=== PATIENT | female | born 1955 | race Caucasian/White ===

== ENCOUNTER 2019-11-05 10:57 | Outpatient (CLI) | payer BC, SELFPAY ==
--- NOTE | ~2019-11-05 | MM_ITS ---
EXAMINATION: MM screening angelina BI w davina HISTORY: Screening mammogram TECHNIQUE: Craniocaudal and mediolateral oblique 3-D tomosynthesis images were obtained and synthetic 2-D images were generated. CAD analysis was submitted and interpreted. COMPARISON: 05/23/2018, 05/15/2017, 05/11/2016 bilateral digital screening mammogram examinations BREAST PARENCHYMAL COMPOSITION: There are scattered areas of fibroglandular density. FINDINGS: There is no evidence of suspicious mass, calcification, or architectural distortion to sugg est malignancy in either breast. There has been no suspicious interval change. IMPRESSION: 1. No mammographic evidence of malignancy. 2. Recommend routine screening mammography in one year. BI-RADS Category 1: Negative Reviewed, dictated and finalized at location A.
== END 2019-11-05 10:58 | disposition home or self-care (01) ==
LOC: CHSIMG 11:01
PROVIDERS: Visit Provider Obstetrics & Gynecology
DX: Z12.31 Encounter for screening mammogram for malignant neoplasm of breast (principal)
CPT/HCPCS: 77063; 77067

== ENCOUNTER 2020-11-10 08:26 | Outpatient (CLI) | payer BC, SELFPAY ==
--- NOTE | ~2020-11-10 | MM_ITS ---
EXAMINATION: MM screening angelina BI w davina HISTORY: Screening mammogram, family history of breast cancer in her mother. TECHNIQUE: Craniocaudal and mediolateral oblique 3-D tomosynthesis images were obtained and synthetic 2-D images were generated. CAD analysis was submitted and interpreted. COMPARISON: 11/05/2019, 05/23/2018, 05/15/2017 BREAST PARENCHYMAL COMPOSITION: There are scattered areas of fibroglandular density. FINDINGS: There is no evidence of suspicious mass, calcification, or architectural distortion to sugg est malignancy in either breast. There has been no suspicious interval change. IMPRESSION: 1. No mammographic evidence of malignancy. 2. Recommend routine screening mammography in one year. BI-RADS Category 1: Negative Reviewed, dictated and finalized at location A.
== END 2020-11-10 08:27 | disposition home or self-care (01) ==
LOC: CHSIMG 08:27
PROVIDERS: PCP Obstetrics & Gynecology; Visit Provider Obstetrics & Gynecology
DX: Z12.31 Encounter for screening mammogram for malignant neoplasm of breast (principal)
CPT/HCPCS: 77063; 77067

== ENCOUNTER 2021-04-22 11:16 | Outpatient (CLI) | payer BC, SELFPAY ==
--- NOTE | ~2021-04-22 | XR_ITS ---
XR knee LT 2V DATE: 04/22/2021 11:32 INDICATION: Medial left knee pain TECHNIQUE: AP and lateral views COMPARISON: None FINDINGS: There is mild osteoarthritis at the patellofemoral and medial compartments. No fracture or dislocation or joint effusion. No periosteal reaction or bone destruction, radiopaque intra-articular loose body or chondrocalcinosis. IMPRESSION: Mild osteoarthritis Reviewed, dictated and finalized at location A. NCIAL PLANNING ASSISTANT IMPRESSION: Mild osteoarthritis
== END 2021-04-22 11:17 | disposition home or self-care (01) ==
LOC: CHSIMG 11:18
PROVIDERS: PCP Family Medicine; Visit Provider Nurse Practitioner Family
DX: M25.562 Pain in left knee (principal)
CPT/HCPCS: 73560

== ENCOUNTER 2021-06-02 08:26 | Outpatient (CLI) | payer BC, SELFPAY ==
[2021-06-02 09:12] LABS: Alanine Aminotransferase 37 U/L (14-59); Albumin Level 3.8 g/dL (3.4-5.0); Alkaline Phosphatase 108 U/L (46-116); Anion Gap 4 mmol/L (8-16); Aspartate Amino Transferase 24 U/L (15-37); Bilirubin,Total 0.3 mg/dL (0.00-1.00); Blood Urea Nitrogen 17 mg/dL (7-18); Calcium 8.7 mg/dL (8.5-10.1); Carbon Dioxide 33 mmol/L (21-32); Chloride 104 mmol/L (98-108); Cholesterol 216 mg/dL (0-200); Estimated Glomerular Filt Rate > 60; Glucose 107 mg/dL (70-99); HDL Direct 55 mg/dL (40-60); LDL Cholesterol Calculated 141 mg/dL (<130); Osmolality Calculated 293 mOsm/kg (285-295); Potassium 3.7 mmol/L (3.5-5.1); Sodium 141 mmol/L (136-145); Total Protein 6.8 g/dL (6.4-8.2); Triglycerides 101 mg/dL (0-150)
== END 2021-06-02 08:27 | disposition home or self-care (01) ==
LOC: CHSLAB 08:29
PROVIDERS: PCP Nurse Practitioner Family; Visit Provider Nurse Practitioner Family
DX: Z00.00 Encounter for general adult medical examination without abnormal findings (principal)
CPT/HCPCS: 36415; 80053; 80061

== ENCOUNTER 2021-08-03 10:31 | Outpatient (CLI) | payer BC, SELFPAY ==
--- NOTE | ~2021-08-03 | MR_ITS ---
EXAMINATION: MR knee LT wo con DATE: 08/03/2021 11:01 INDICATION: 6 months of left knee pain TECHNIQUE: Magnetic resonance imaging (MRI) of the left knee was performed without intravenous contra st. Sequences included coronal PD-weighted FSE, coronal PD-weighted FS FSE, sagittal T2-weighted FSE , sagittal PD-weighted FS FSE and axial PD weighted fat saturated FSE. COMPARISON: None. FINDINGS: Medial compartment: Full-thickness radial tear near the posterior root of the medial meniscus. Additional small radial te ar along the inner free edge of the more medial posterior horn. Partial-thickness chondral ulceration with chondral surface irregularity and mild underlying cortical irregularity and edema-like marrow s ignal change at the anterior weightbearing medial femoral condyle. Mild partial-thickness cartilage l oss with some additional chondral surface regularity of the central to anterior aspect of the medial tibial plateau. Lateral compartment: Lateral meniscus is normal. Articular cartilage is normal. Patellofemoral compartment: Deep chondral ulceration along the patellar apical ridge with foci of subarticular edema-like signal changes at the cephalad aspect of the apical ridge and mild cystlike change at the inferior aspect of the apical ridge. Less severe partial thickness chondral ulceration without degenerative subchondral changes at the medial patellar facet. Deep chondral ulceration and fissuring with prominent underlyi ng subarticular edema and cystlike changes at the central to the inferomedial aspect of the lateral t rochlea. Additional deep chondral fissuring with mild subarticular edema-like signal change at the in ferior aspect of the medial trochlea. Ligaments and tendons: Anterior and posterior cruciate ligaments are normal. The medial collateral ligament and fibular mel ateral ligament complex are normal. Mild distal quadriceps tendinopathy without discrete tear. The pa tellar tendon is normal. The visualized medial and lateral hamstring tendons as well as the iliotibia l band are normal. Fluid: Small left knee joint effusion at the suprapatellar pouch. No loose osteochondral bodies identified. Small Sheffield's cyst. Osseous/other: Bone alignment is normal. No fracture or abnormal marrow replacing process. IMPRESSION: 1. Full-thickness radial tear near the posterior root of the medial meniscus. 2. 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 Reviewed, dictated and finalized at location A. IMPRESSION: 1. Full-thickness radial tear near the posterior root of the medial meniscus. 2. 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
== END 2021-08-03 10:32 | disposition home or self-care (01) ==
LOC: CHSIMG 10:32
PROVIDERS: PCP Nurse Practitioner Family; Visit Provider Nurse Practitioner Family
DX: M25.562 Pain in left knee (principal)
CPT/HCPCS: 73721

== ENCOUNTER 2021-10-01 08:06 | Outpatient (CLI) | payer BC, SELFPAY ==
--- NOTE | ~2021-10-01 | XR_ITS ---
XR chest 2V DATE: 10/01/2021 09:09 INDICATION: Preoperative chest TECHNIQUE: 2 views COMPARISON: None FINDINGS: Normal heart size. No hilar or mediastinal enlargement. Bilateral hyperinflation. No pul monary infiltrate or consolidation, pulmonary vascular congestion or pleural effusion or pneumothorax . IMPRESSION: Bilateral hyperinflation; no active cardiopulmonary disease Reviewed, dictated and finalized at location B.
[2021-10-01 08:18] LABS: Basophils Absolute Auto 0.02 K/mm3 (0.00-0.10); Basophils Percent Auto 0.4 % (0.0-1.0); Eosinophils Absolute Auto 0.15 K/mm3 (0.02-0.50); Eosinophils Percent Auto 3.2 % (1.0-6.0); Hematocrit 41.1 % (35.0-49.0); Hemoglobin 13.5 g/dL (12.0-15.0); Immature Granulocyte Absolute 0.01 K/mm3 (0.00-0.00); Immature Granulocyte Percent A 0.2 % (0.0-0.0); Lymphocytes Absolute Auto 1.75 K/mm3 (1.10-4.50); Lymphocytes Percent Auto 37.4 % (18.0-42.0); Mean Corpuscular HGB Conc 32.8 g/dL (32.0-36.0); Mean Corpuscular Volume 88.2 fL (78.0-102.0); Mean Platelet Volume 10.2 fl (9.2-11.8); Monocytes Absolute Auto 0.44 K/mm3 (0.10-0.90); Monocytes Percent Auto 9.4 % (2.0-11.0); Neutrophils Absolute Auto 2.3 K/mm3 (1.7-7.2); Neutrophils Percent Auto 49.4 % (50.0-70.0); Platelet Count Result 240 K/mm3 (150-420); Red Blood Count 4.66 M/mm3 (4.20-5.40); White Blood Count 4.7 K/mm3 (4.8-10.8)
--- NOTE | 2021-10-01 08:30 | ECG_ITS ---
Measurements Intervals [place] Rate: 65 P: 50 MS: 155 QRS: -11 QRSD: 136 T: 44 QT: 444 QTc: 464 Interpretive Statements SINUS RHYTHM RIGHT BUNDLE BRANCH BLOCK [120+ ms QRS DURATION, UPRIGHT V1, 40+ ms S IN I/aVL/V4/V5/V6] NO PREVIOUS ECG AVAILABLE FOR COMPARISON Electronically Signed On 10-01-2021 10:28:23 CDT by Sharad Marc M.D.
[2021-10-01 09:18] LABS: Alanine Aminotransferase 23 U/L (14-59); Albumin Level 4.2 g/dL (3.4-5.0); Alkaline Phosphatase 106 U/L (46-116); Anion Gap 8 mmol/L (8-16); Aspartate Amino Transferase 15 U/L (15-37); Bilirubin,Total 0.6 mg/dL (0.00-1.00); Blood Urea Nitrogen 20 mg/dL (7-18); Carbon Dioxide 29 mmol/L (21-32); Chloride 106 mmol/L (98-108); Cholesterol 203 mg/dL (0-200); Estimated Glomerular Filt Rate > 60; Glucose 118 mg/dL (70-99); HDL Direct 48 mg/dL (40-60); LDL Cholesterol Calculated 129 mg/dL (<130); Osmolality Calculated 299 mOsm/kg (285-295); Potassium 3.5 mmol/L (3.5-5.1); Sodium 143 mmol/L (136-145); Total Protein 6.9 g/dL (6.4-8.2); Triglycerides 130 mg/dL (0-150)
== END 2021-10-01 08:07 | disposition home or self-care (01) ==
LOC: CHSLAB 08:08
PROVIDERS: PCP Nurse Practitioner Family; Visit Provider Nurse Practitioner Family
DX: Z01.818 Encounter for other preprocedural examination (principal)
CPT/HCPCS: 36415; 71046; 80053; 80061; 85025; 93005

== ENCOUNTER 2021-10-08 00:58 | Day surgery (SDC) | payer BC, SELFPAY ==
[2021-10-05 13:48] VITALS: BMI 24.0
--- NOTE | 2021-10-05 14:00 | PC.NURSE ---
Report to the Outpatient Waiting Room, entrance under the green pavilion located off [address], at time _0815_ on date _[id number]_. OR Time: _1015_. - You and your visitor will be asked to self-screen and do not enter if you have any COVID symptoms. - Only one visitor and NO children visitors are allowed at this time. - The patient visitor is requested to leave or wait in car when not with patient due to restrictions. - A mask is required within the hospital. Patients may have clear liquids (water, carbonated beverages, clear teas, apple juice) until 3 hours prior to surgery with a maximum of 20 ounces. - No food from midnight until time of surgery Take the following medications with a SIP of water the morning of surgery: ____None Medications to discontinue per physician Patient already stopped supplements. Date to take last dose Please no make-up, nail occitan, hairspray, perfume, deodorant, or body powder the day of surgery. No jewelry (including any body piercings) or valuables the day of surgery, leave them at home. Please take a shower or bath the night before, or the morning of, surgery with an antibacterial soap. Wear comfortable, loose fitting clothing. - Jewelry must be removed prior to entering the operating room. Rings and piercings that are not removed may be cut off. - The hospital will not accept responsibility for valuables. - Please leave all valuables, including medications, at home the day of surgery. If you are going home after surgery, a licensed wheat combine driver must drive you home. - NO public transportation without another adult. - We recommend that an adult stay with you for 24 hours following discharge. - We also recommend that you do not drive, make important decision, drink alcoholic beverages, or take any drugs that were not prescribed by your health care provider for at least 24 hours after your discharge time. Follow any additional instructions given to you from your surgeon. If you or anyone in your household have experienced Covid symptoms in the past week, please notify your surgeon or the nurse liaison at the phone number below for possible testing. Telephone instructions given to __Patient__and asked if any additional questions and then verbalized understanding. Patient advised to call surgeon office or pre surgery nurse liaison [phone] if any additional questions.
[2021-10-08] VITALS (9 sets, daily range): BP systolic 109–168; BP diastolic 66–87; PULSE 64–79; RESP 11–18; TEMP 36.2–36.7; O2SAT 97–100
--- NOTE | 2021-10-08 07:16 | WPDHPUPDATE1 ---
History and Physical Update Update Date/Time: 10/08/21 07:16 History and Physical has been reviewed, including an updated exam of the patient. There are NO changes in the patient's condition. Risks, benefits, and alternatives have been discussed and questions answered. Patient agrees to proceed with procedure.
[2021-10-08] MEDS: LACTATED RINGERS 1,000 ML 30 ML IV CONT ×2 (09:00→11:40)
--- NOTE | 2021-10-08 09:18 | WPDANESEPPF ---
Anes - Initial Pre Proc Eval Procedure: Operation Date: 10/08/21 10:15 Proposed Procedures p Left Knee Arthroscopy, Proceed As Indicated - Marvin Noel MD Date/Time: 10/08/21 09:18 Surgeon: Marvin Noel MD Pre Op Diagnosis: left knee medial meniscus tear Patient Data Age: 66 Gender: F Height: 1.6 m Weight: 61.6 kg Allergies Allergy/AdvReac Type Severity Reaction Status Date / Time Penicillins Allergy Mild Rash Verified 10/05/21 13:46 Home Medications Medication Instructions Recorded Confirmed Type calcium carbonate 600 mg calcium 600 mg PO DAILY 09/07/21 10/05/21 History (1,500 mg) tablet (Calcium) omega-3s 350 cv-adu-cys-other 1 cap PO DAILY 09/07/21 10/05/21 History [id number] oil 600 mg capsule (Fish Oil) turmeric root extract 500 mg 1,000 mg PO DAILY 09/07/21 10/05/21 History capsule lisinopril 20 mg tablet 20 mg PO DAILY #30 tabs 09/30/21 10/05/21 Rx chlorhexidine gluconate 4 % 1 applic topical ONCE #237 mL 10/01/21 Rx topical liquid (Hibiclens) Patient hx anesthesia problems: none Family hx anesthesia problems: none Results Review: All pre-operative results and documents have been reviewed as part of the pre-operative evaluation. 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 by the patient): Female Spiritual care concerns: No Anes - Eval Final PreProcedure Day of Procedure 10/08/21 09:18 Patient weight: normal Heart: regular rate and rhythm Lungs: clear to auscultation Airway: Mallampati scale class II Neurological: alert and oriented Last oral intake: >/= 8 hours ASA classification: II Anesthetic plan: proceed Anesthesia type and monitoring: general LMA and standard monitoring Results Review: All pre-operative results and documents have been reviewed as part of the pre-operative evaluation. Informed Consent: The patient's anesthetic plan and its attendant risks and benefits were discussed with the patient/family/POA. Questions were solicited and answers provided to the satisfaction of the patient/family/POA.
[2021-10-08] MEDS: ACETAMINOPHEN 500 MG TABLET 1000 MG PO (09:30)
[2021-10-08] MEDS: CELECOXIB 200 MG CAPSULE PO (09:30)
--- NOTE | 2021-10-08 10:12 | PM.IMHP ---
H&P: HPI History of Present Illness Date/Time: 10/08/21 10:12 Chief Complaint: LEFT KNEE PAIN Narrative: Pt presents with Left knee pain that has been present for approximately 6 months. NKI. Pt states ~April she began having a burning pain throughout the entire left leg, including hip and low back/buttock. She then ran a 5k &10k which exacerbated her pain. Her pain is currently located at the medial aspect of the knee. She was ordered Diclofenac by her PCP which she took for a short time. She states the medication did reduce her pain but did not resolve it. Her pain becomes worse with activity so she has dramatically decreased her activity level which is effecting her life and well-being. She is not currently ambulating w/ AD. She tried bracing in the past but D/C'd as it was not providing adequate relief. She underwent an MRI 08/03/21 and is here to discuss results and further plan of care. Involved knee: LEFT Onset: gradual Description of injury: NKI Location of pain: medial Character: radiating, dull ache and shooting Timing of pain: intermittent Exacerbated by: squatting, stairs, running, prolonged activity and walking down stairs Relieved by: ice, rest and NSAIDs Associated symptoms: Reports swelling, instability and stiffness History of occupational/recreational activity with repetitive motion: No History of prior knee injury: No Review of Systems Review of Systems: All systems reviewed & are unremarkable except as noted in HPI and below PMFSH Surgical History Surgical History H/O tubal ligation Hx of tonsillectomy Family History Family History Other Arthritis Breast cancer Hypertension Social History Social History Smoking status: Never smoker Alcohol intake: current Drinks per week: 6 Substance use: never Living arrangements: with family 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 by the patient): Female Spiritual care concerns: No Meds Home Medications and Allergies Home Medications Medication Instructions Recorded Confirmed Type calcium carbonate 600 mg calcium 600 mg PO DAILY 09/07/21 10/08/21 History (1,500 mg) tablet (Calcium) omega-3s 350 eb-vkb-sfh-other 1 cap PO DAILY 09/07/21 10/08/21 History [id number] oil 600 mg capsule (Fish Oil) turmeric root extract 500 mg 1,000 mg PO DAILY 09/07/21 10/08/21 History capsule lisinopril 20 mg tablet 20 mg PO DAILY #30 tabs 09/30/21 10/08/21 Rx chlorhexidine gluconate 4 % 1 applic topical ONCE #237 mL 10/01/21 10/08/21 Rx topical liquid (Hibiclens) Allergies Allergy/AdvReac Type Severity Reaction Status Date / Time Penicillins Allergy Mild Rash Verified 10/08/21 09:35 Vital Signs Vital Signs - 24 hr 10/08/21 09:00 Temperature 36.7 C Pulse Rate 79 Respiratory Rate 16 Blood Pressure 168/86 H Pulse Oximetry 100 Oxygen Delivery Room Air Exam Const: General: cooperative and healthy appearing HENMT: Head: normal to inspection and normocephalic Eyes: General: appearance normal, both eyes and all related structures Neck: Neck: normal visual inspection Chest: Chest palpation & inspection: normal inspection of the chest Resp: Effort & Inspection: normal respiratory effort and able to speak in complete sentences Auscultation: clear to auscultation bilaterally Cardio: Heart sounds: S1 normal heart sound present and S2 normal heart sound present GI: Inspection: normal to inspection Neuro: General: oriented to person, oriented to place, oriented to time and patient oriented x3 Extrem: Left lower extremity: knee Details: abnormal to inspection, tenderness, swelling (MILD EFFUSION), abnormal ROM, Yana's Test Details: positive medially and laterally and crepitus; no
[2021-10-08] MEDS: ceFAZolin 2 GM/D5W 50 ML 2 GM/50 ML BAG IVPB (10:21)
[2021-10-08] MEDS: BUPIVACAINE HCL 0.5% PF 30 ML VIAL INFILTRATE (10:45)
--- NOTE | 2021-10-08 12:04 | W.PM.PROC2 ---
Procedure Note - Detailed Date of Procedure 10/08/21 Pre-op Diagnosis left knee medial meniscus tear Post-op Diagnosis Same Procedure Performed LEFT KNEE SCOPE Surgeon Marvin Noel MD Anesthesia General Description of Procedure PATIENT WAS TAKEN TO THE OR. LEFT LEG WAS PREPPED AND DRAPED STERILE. TROCARS WERE PLACED IN THE USUAL FASHION. CAMERA WAS INTRODUCED. THERE WAS CHONDROMALACIA TO THE PATELLA FEMORAL JOINT. THERE WAS A LOT OF SYNOVITIS IN ALL COMPARTMENTS. THE MEDIAL COMPARTMENT SHOWED CHONDROMALACIA TO THE MEDIAL FEMORAL CONDYLE. THERE WAS AN AREA OF GRADE 3 CHONDROMALACIA AND FULL THICKNESS DEFECT. A SHAVER WAS USED TO PREFORM A CHONDROPLASTY. THERE WAS A COMPLEX MEDIAL MENISCUS TEAR. THE TEAR WAS RESECTED WITH A BITER AND A SHAVER DOWN TO A SMOOTH BASE. THE ACL WAS INTACT. THE LATERAL MENISCUS WAS NOT TORN. THE LAT COMPARTMENT HAD MINIMAL CHONDROMALACIA. CHONDROPLASTY WAS PREFORMED. A SYNOVECTOMY WAS PREFORMED WELL. THE PATELLO FEMORAL JOINT UNDERWENT CHONDROPLASTY. THERE WAS GRADE 2 CHONDROMALACIA IN PART OF THE TROCHLEA AND PART OF THE PATELLA. SYNOVECTOMY WAS PREFORMED IN THE SUPERIOR MEDIAL COMPARTMENT. THE WOUNDS WERE APPROXIMATED WITH 4.0 NYLON. STERILE DRESSING WAS APPLIED. PATIENT WAS EXTUBATED. Estimated Blood Loss -5.0 Complications No immediate complications Condition Stable Disposition PACU
[2021-10-08] MEDS: oxyCODONE HCL (*CRX) 5 MG TAB IR PO (12:58)
== END 2021-10-08 13:35 | disposition home or self-care (01) ==
PROVIDERS: PCP Nurse Practitioner Family; Visit Provider Orthopaedic Surgery
PROC: (CPT 29870; principal; 2021-10-08 10:15)
DX: M23.332 Other meniscus derangements, other medial meniscus, left knee (principal); M94.262 Chondromalacia, left knee; M65.862 Other synovitis and tenosynovitis, left lower leg
CPT/HCPCS: 29881; A9270; J0690; J1100; J2250; J2405; J2704; J3010; J7120

== ENCOUNTER 2021-11-17 10:17 | Outpatient (CLI) | payer BC, SELFPAY ==
--- NOTE | ~2021-11-17 | MM_ITS ---
EXAMINATION: MM screening angelina BI w davina HISTORY: Screening mammogram TECHNIQUE: Craniocaudal and mediolateral oblique 3-D tomosynthesis images were obtained and synthetic 2-D images were generated. CAD analysis was submitted and interpreted. COMPARISON: 11/10/2020, 11/05/2019, 06/09/2018 bilateral screening mammogram examinations BREAST PARENCHYMAL COMPOSITION: There are scattered areas of fibroglandular density. FINDINGS: There is no evidence of suspicious mass, calcification, or architectural distortion to sugg est malignancy in either breast. There has been no suspicious interval change. IMPRESSION: 1. No mammographic evidence of malignancy. 2. Recommend routine screening mammography in one year. BI-RADS Category 1: Negative Reviewed, dictated and finalized at location A.
== END 2021-11-17 10:18 | disposition home or self-care (01) ==
LOC: CHSIMG 10:20
PROVIDERS: PCP Nurse Practitioner Family; Visit Provider Obstetrics & Gynecology
DX: Z12.31 Encounter for screening mammogram for malignant neoplasm of breast (principal)
CPT/HCPCS: 77063; 77067

== ENCOUNTER 2022-04-08 15:31 | Outpatient (CLI) | payer BC, SELFPAY ==
--- NOTE | ~2022-04-08 | XR_ITS ---
XR lumbar spine 2-3V DATE: 04/08/2022 15:54 INDICATION: Low back pain radiating to both hips for one year TECHNIQUE: AP, lateral and coned lateral lumbosacral views COMPARISON: None FINDINGS: There is severe degenerative disc disease at L1-2, moderately severe degenerative disc dise ase at L2-3, mild to moderate degenerative disc disease at L3-4. L4-5 and L5-S1 interspaces are relat ively preserved. There is degenerative change at the apophyseal joints in the mid to lower lumbar spine area with asso ciated grade 1 anterolisthesis at L3-4. The included lower thoracic and lumbar pedicles are intact. No fracture or bone destruction is detect ed. The sacroiliac joints are intact. IMPRESSION: Multilevel degenerative disc disease, greatest at L1-2 and L2-3 Degenerative changes apophyseal joints with associated grade 1 anterolisthesis at L3-4 Reviewed, dictated and finalized at location A. ET HEATER OPERATOR
--- NOTE | ~2022-04-08 | XR_ITS ---
XR knee LT 2V DATE: 04/08/2022 15:53 INDICATION: Left knee pain. Torn meniscus. TECHNIQUE: AP and lateral views COMPARISON: None FINDINGS: Moderately prominent loss of medial compartment joint space height. There is mild periartic ular spurring of the medial and patellofemoral compartments consistent with osteoarthritis. No fracture or dislocation or joint effusion, radiopaque intra-articular loose body or chondrocalcino sis. No periosteal reaction or bone destruction. IMPRESSION: Osteoarthritis, greatest at the medial compartment Reviewed, dictated and finalized at location A. EL RETROFIT INSTALLER
--- NOTE | ~2022-04-08 | XR_ITS ---
XR knee RT 2V DATE: 04/08/2022 15:54 INDICATION: Right knee pain. No known injury. TECHNIQUE: AP and lateral views COMPARISON: None FINDINGS: There is mild loss of medial prominent joint space height and minimal periarticular spurrin g at the medial and patellofemoral compartments. No fracture or dislocation or joint effusion, radiopaque intra-articular loose body or chondrocalcino sis is detected. IMPRESSION: Mild osteoarthritis Reviewed, dictated and finalized at location A. GER PROFESSIONAL DEVELOPMENT IMPRESSION: Mild osteoarthritis
== END 2022-04-08 15:32 | disposition home or self-care (01) ==
LOC: CHSIMG 15:34
PROVIDERS: PCP Nurse Practitioner Family; Visit Provider Nurse Practitioner Family
DX: M54.50 Low back pain, unspecified (principal); M25.562 Pain in left knee; M25.561 Pain in right knee; M17.0 Bilateral primary osteoarthritis of knee; M43.16 Spondylolisthesis, lumbar region
CPT/HCPCS: 72100; 73560

== ENCOUNTER 2022-11-23 12:15 | Outpatient (CLI) | payer MEDICARE, BC, SELFPAY ==
--- NOTE | ~2022-11-23 | MM_ITS ---
EXAMINATION: MM screening angelina BI w davina HISTORY: Screening mammogram, family history of breast cancer in her mother. TECHNIQUE: Craniocaudal and mediolateral oblique 3-D tomosynthesis images were obtained and synthetic 2-D images were generated. CAD analysis was submitted and interpreted. COMPARISON: 11/17/2021, 11/10/2020, 11/05/2019 BREAST PARENCHYMAL COMPOSITION: There are scattered areas of fibroglandular density. FINDINGS: No suspicious mass, calcification, or architectural distortion are identified in either hood ast to suggest malignancy. There has been no suspicious interval change. IMPRESSION: 1. No mammographic evidence of malignancy. 2. Recommend routine screening mammography in one year. BI-RADS Category 1: Negative Reviewed, dictated and finalized at location A.
== END 2022-11-23 12:16 | disposition home or self-care (01) ==
LOC: CHSIMG 12:17
PROVIDERS: PCP Nurse Practitioner Family; Visit Provider Obstetrics & Gynecology
DX: Z12.31 Encounter for screening mammogram for malignant neoplasm of breast (principal)
CPT/HCPCS: 77063; 77067

== ENCOUNTER 2022-12-06 13:15 | Outpatient (CLI) | payer MEDICARE, BC, SELFPAY ==
--- NOTE | ~2022-12-06 | DEXA_ITS ---
Bone Density Report Name: GARLAND MCCLAIN Age: 67 Sex: Female Ethnicity: White Date of : 1955 Indication: postmenopausal; screening for osteoporosis; height loss; Referring Provider: DIEGO COLLADO Study: Bone densitometry was performed. Exam Date: December 06, 2022 Accession number: [id number] Bone Density: Region BMD T-score Z-score Classification AP Spine(L1-L4) 0.975 -0.7 1.1 Normal Femoral Neck (Left) 0.627 -2.0 -0.5 Osteopenia Total Hip (Left) 0.865 -0.6 0.6 Normal Femoral Neck (Right) 0.749 -0.9 0.6 Normal Total Hip (Right) 0.980 0.3 1.5 Normal Femoral Neck Mean 0.688 -1.4 0.1 Osteopenia Total Hip Mean 0.922 -0.2 1.1 Normal World Health Organization criteria for BMD impression classify patients as: Normal (T-score at or above -1.0), Osteopenia (T-score between -1.0 and -2.5), or Osteoporosis (T-score at or below -2.5). 10-year Fracture Risk(1): Major Osteoporotic Fracture 10% Hip Fracture 1.5% Reported Risk Factors: [place] (), Neck BMD=0.627, BMI=24.7 (1) FRAX(R) Version 3.08. Fracture probability calculated for an untreated patient. Fracture probability may be lower if the patient has received treatment. Clinical Information Provided by Patient: Has used the following medications: Vitamin D, Calcium Patient maximum height was 63 Menopause Age: 50 Drinks caffeinated beverages Onset of menses at age 16 Number of children 3 Impression: The patient has low bone mass, based on the Left Femoral Neck T-score. Discussion: BONE DENSITY IS LOW AT ONE OR MORE SKELETAL SITES. This patient's lowest T-score is low at one or more skeletal sites. It meets the World Health Organization's (WHO) criteria for ?low bone mass? (T-score between -1.0 and -2.5). The patient's 10-year risk of fracture as calculated by FRAX is less than the threshold where pharmacological therapy is recommended by the National Osteoporosis Foundation (NOF). However, all treatment decisions require clinical judgment and consideration of individual patient factors, including patient preferences, comorbidities, previous drug use, risk factors not captured in the FRAX model (e.g., frailty, falls, vitamin D deficiency, increased bone turnover, interval significant decline in bone density) and possible under or overestimation of fracture risk by FRAX. The patient should follow a healthful lifestyle (good nutrition with adequate calcium and vitamin D, and appropriate weight-bearing exercise). Follow-Up: Consider repeating this study in 2 to 3 years to reassess this patient's status, or sooner if there is some new clinical indication. Reported by: Dr. Ld Pelaez on 12/22/2022 9:55:00 AM. Reviewed, dictated and finalized at location A.
== END 2022-12-06 13:16 | disposition home or self-care (01) ==
LOC: CHSIMG 13:16
PROVIDERS: PCP Nurse Practitioner Family; Visit Provider Obstetrics & Gynecology
DX: Z78.0 Asymptomatic menopausal state (principal); M85.89 Other specified disorders of bone density and structure, multiple sites
CPT/HCPCS: 77080

== ENCOUNTER 2023-05-11 13:59 | Outpatient (CLI) | payer MEDICARE, BC, SELFPAY ==
[2023-05-11 14:16] LABS: Basophils Absolute Auto 0.04 K/mm3 (0.00-0.10); Basophils Percent Auto 0.7 % (0.0-1.0); Eosinophils Absolute Auto 0.12 K/mm3 (0.02-0.50); Hemoglobin 13.9 g/dL (11.7-13.8); Immature Granulocyte Absolute 0.01 K/mm3 (0.00-0.00); Immature Granulocyte Percent A 0.2 % (0.0-0.0); Lymphocytes Absolute Auto 2.06 K/mm3 (1.10-4.50); Lymphocytes Percent Auto 34.1 % (18.0-42.0); Mean Corpuscular HGB Conc 31.6 g/dL (32-36); Mean Corpuscular Hemoglobin 27.7 pg (27.0-31.0); Mean Corpuscular Volume 87.6 fL (78.0-102.0); Mean Platelet Volume 9.8 fl (9.2-11.8); Monocytes Absolute Auto 0.31 K/mm3 (0.10-0.90); Monocytes Percent Auto 5.1 % (2.0-11.0); Neutrophils Percent Auto 57.9 % (50.0-70.0); Platelet Count Result 275 K/mm3 (150-420); Red Blood Count 5.02 M/mm3 (4.20-5.40); Red Cell Distribution Width 12.8 % (11.6-14.4)
[2023-05-11 15:32] LABS: Alanine Aminotransferase 29 U/L (14-59); Albumin Level 4.3 g/dL (3.4-5.0); Alkaline Phosphatase 91 U/L (46-116); Anion Gap 7 mmol/L (8-16); Aspartate Amino Transferase 18 U/L (15-37); Bilirubin,Total 0.6 mg/dL (0.00-1.00); Blood Urea Nitrogen 23 mg/dL (7-18); Calcium 9.3 mg/dL (8.5-10.1); Carbon Dioxide 32 mmol/L (21-32); Chloride 105 mmol/L (98-108); Cholesterol 256 mg/dL (0-200); Estimated Glomerular Filt Rate > 60; Glucose 123 mg/dL (70-99); HDL Direct 52 mg/dL (40-60); LDL Cholesterol Calculated 168 mg/dL (<130); Osmolality Calculated 302 mOsm/kg (285-295); Potassium 3.5 mmol/L (3.5-5.1); Sodium 144 mmol/L (136-145); Total Protein 7.3 g/dL (6.4-8.2); Triglycerides 182 mg/dL (0-150)
[2023-05-12 08:38] LABS: Hemoglobin A1C 5.9 % (<5.7)
[2023-05-14 02:32] LABS: Vitamin D 25 Hydroxy 43 ng/mL (30-100)
== END 2023-05-11 14:00 | disposition home or self-care (01) ==
LOC: CHSLAB 14:01
PROVIDERS: PCP Nurse Practitioner Family; Visit Provider Nurse Practitioner Family
DX: I10 Essential (primary) hypertension (principal); Z13.6 Encounter for screening for cardiovascular disorders; Z79.899 Other long term (current) drug therapy; R73.09 Other abnormal glucose
CPT/HCPCS: 36415; 80053; 80061; 82306; 83036; 85025

== ENCOUNTER 2023-05-16 15:43 | Outpatient (RCR) | payer MEDICARE, BC, SELFPAY ==
--- NOTE | 2023-05-16 17:33 | OPREHPOC ---
Outpatient Therapy Plan of Care This is a Multidisciplinary Plan of Care that may contain components documented by all disciplines (PT, OT, and ST.) PT Problem 1 PT Problem #1 Knowledge Deficit PT Goal 1 Goal patient to demonstrate independence with HEP Target Visit 5 PT Problem 2 PT Problem #2 Pain PT Goal 1 Goal 1. patient to report highest pain at 2/10 2. patient to report no sleep disturbance due to L LE pain Target Visit 10 PT Problem 3 PT Problem #3 Impaired Strength PT Goal 1 Goal 1. patient to demonstrate 5/5 B LE strength to return to yard work 2. patient to demonstrate 4+/5 core strength to return to standing for prolonged periods Target Visit 10 PT Problem 4 PT Problem #4 Impaired Functional Mobil PT Goal 1 Goal 1. Patient to demonstrate 20% improvement on Back index 2. Patient to return to house hold tasks at PLOF Target Visit 10
--- NOTE | 2023-05-16 17:34 | PTOPEVAL1 ---
Assessment and note entered by Charlene Reynolds DPT Evaluation Information Assessment Status Evaluation Diagnosis low back pain, L LE radicular pain Onset 05/11/23 Subjective Information Patient reports that in 2021 she had knee surgery and since then has noticed on and off low back pain with pain down the L LE. she reports that pain comes and goes and is mostly in the L glute and hip. she denies any numbness in the L foot. she notices pain most right away in the morning, doing yard work, some gym activities, and sitting/ standing for prolonged periods. she reports she is semi-retired but she stays very active. Reported Pain Level Pain Score 0,4: Self Report Assessment PT Clinical Summary Mrs. Velasco is a 67 year old female who presents to PT with low back pain with L LE radiating symptoms. She demonstrates decreased B hip strength, decreased flexibility of B piriformis L> R and decreased core strength limiting her ability to sleep, sit for long periods of time, and complete yard work. She would benefit from skilled PT to address impairments and return to PLOF. Plan of Care Interventions Electrical Stimulation,Gait Training,Hot Pack/Cold Pack,Manual Therapy,Mechanical Traction,Neuro Re- education,Patient/Caregiver Educati,Therapeutic Activities,Therapeutic Exercise PT Services Indicated Yes Treatment Frequency and 2x weekly for 10 visits Duration These treatments will address the objective and functional deficits as defined above. The patient will be advanced safely and appropriately in order for the patient to progress towards his/her prior level of function. Additional exercises will be introduced and as well as a comprehensive home exercise program upon discharge, if needed, ?to ensure carryover of functional gains achieved in the clinic. This treatment plan has been reviewed and agreement upon by the patient.
--- NOTE | 2023-06-20 17:05 | OPREHPOC ---
Outpatient Therapy Plan of Care This is a Multidisciplinary Plan of Care that may contain components documented by all disciplines (PT, OT, and ST.) PT Problem 1 PT Problem #1 Knowledge Deficit PT Goal 1 Goal patient to demonstrate independence with HEP Target Visit 5 Progress Met PT Problem 2 PT Problem #2 Pain PT Goal 1 Goal 1. patient to report highest pain at 2/10 2. patient to report no sleep disturbance due to L LE pain Target Visit 10 Progress Not Met PT Problem 3 PT Problem #3 Impaired Strength PT Goal 1 Goal 1. patient to demonstrate 5/5 B LE strength to return to yard work 2. patient to demonstrate 4+/5 core strength to return to standing for prolonged periods Target Visit 10 Progress Partially Met PT Problem 4 PT Problem #4 Impaired Functional Mobil PT Goal 1 Goal 1. Patient to demonstrate 20% improvement on Back index 2. Patient to return to house hold tasks at [facility] [employer], met Target Visit 10 Progress Partially Met
--- NOTE | 2023-06-20 17:06 | PTOPDC ---
Assessment and note entered by Charlene Reynolds DPT Evaluation Information Assessment Status Discharge Diagnosis low back pain, L LE radicular pain Onset 05/11/23 Subjective Information patient denies any numbness down into the foot. she reports independence with HEP. overall she reports she improved with therapy. she reports any existing pain is at the superior portion of the L glute and describes it as achy Reported Pain Level Pain Score 4,4: Self Report Assessment PT Clinical Summary Mrs. Velasco attended 10 visits of skilled PT with great progress towards goals. Patient has improved LE strength, improved core strength and decreased pain. She reports that radiating pain has resolved and she has been able to return to house hold tasks at [facility]. Patient is independent with HEP and is appropriate for DC at this time. Plan of Care PT Services Indicated No
== END 2023-06-20 20:00 | disposition home or self-care (01) ==
LOC: CHSPT 15:43
PROVIDERS: Visit Provider Nurse Practitioner Family
DX: M54.32 Sciatica, left side (principal)
CPT/HCPCS: 97014; 97110; 97140; 97161; G0283

== ENCOUNTER 2023-06-30 14:49 | Outpatient (NON) | payer MEDICARE, BC, SELFPAY ==
[2023-06-30 15:07] LABS: Appearance Urine Clear (Clear); Bilirubin Urine Negative (Negative); Blood Urine Negative (Negative); Glucose Urine UA Negative (Negative); Ketones Urine Negative (Negative); Leukocyte Esterase Ur Trace (Negative); Nitrate Urine Positive (Negative); Protein Urine Negative (Negative); Specific Grav Ur <= 1.005 (1.010-1.020); Urobilinogen Urine 0.2 mg/dL (0.2-1.0)
[2023-06-30 15:17] LABS: Color Urine Amber (Yellow)
[2023-06-30 15:18] LABS: Add Urine Microscopic? YES; Bacteria Urine 1+ /hpf; RBC Urine None seen /hpf (0-2); Squamous Epithelial Cell Urine Few /hpf (Few); WBC Urine 0-3 /hpf (0-3)
== END 2023-06-30 14:50 | disposition home or self-care (01) ==
LOC: CHSLAB 14:51
PROVIDERS: Visit Provider Nurse Practitioner Family
DX: N39.0 Urinary tract infection, site not specified (principal); R39.9 Unspecified symptoms and signs involving the genitourinary system
CPT/HCPCS: 81001; 87077; 87086; 87088; 87186

== ENCOUNTER 2023-07-11 12:16 | Outpatient (CLI) | payer MEDICARE, SELFPAY ==
[2023-07-11 12:29] LABS: Appearance Urine Clear (Clear); Bilirubin Urine Negative (Negative); Blood Urine Negative (Negative); Color Urine Light Yellow (Yellow); Glucose Urine UA Negative (Negative); Ketones Urine Negative (Negative); Leukocyte Esterase Ur Trace LEU/UL (Negative); Nitrate Urine Negative (Negative); Protein Urine Negative (Negative); Urobilinogen Urine 0.2 mg/dL (0.2-1.0); pH Urine 7.5 (5.0-8.0)
[2023-07-11 12:52] LABS: Add Urine Microscopic? YES; Bacteria Urine None seen /hpf; RBC Urine None seen /hpf (0-2); Squamous Epithelial Cell Urine Few /hpf (Few); WBC Urine 0-3 /hpf (0-3)
[2023-07-11 12:53] LABS: Mucus Urine Few /lpf
== END 2023-07-11 12:17 | disposition home or self-care (01) ==
LOC: CHSLAB 12:18
PROVIDERS: PCP Nurse Practitioner Family; Visit Provider Nurse Practitioner Family
DX: R39.9 Unspecified symptoms and signs involving the genitourinary system (principal)
CPT/HCPCS: 81001

== ENCOUNTER 2023-11-27 13:51 | Outpatient (CLI) | payer MEDICARE, BC, SELFPAY ==
--- NOTE | ~2023-11-27 | MM_ITS ---
EXAMINATION: MM screening angelina BI w davina HISTORY: Screening TECHNIQUE: Craniocaudal and mediolateral oblique 3-D tomosynthesis images were obtained and synthetic 2-D images were generated. CAD analysis was submitted and interpreted. COMPARISON: Comparison to multiple prior studies sequentially, with oldest reviewed study dated 11/17. BREAST PARENCHYMAL COMPOSITION: Not dense: There are scattered areas of fibroglandular density. FINDINGS: There is no evidence of suspicious mass, calcification, or architectural distortion to sugg est malignancy in either breast. There has been no suspicious interval change. IMPRESSION: 1. No mammographic evidence of malignancy. 2. Recommend routine screening mammography in one year. BI-RADS Category 1: Negative Reviewed, dictated and finalized at location B.
== END 2023-11-27 13:52 | disposition home or self-care (01) ==
LOC: CHSIMG 13:53
PROVIDERS: PCP Nurse Practitioner Family; Visit Provider Obstetrics & Gynecology
DX: Z12.31 Encounter for screening mammogram for malignant neoplasm of breast (principal)
CPT/HCPCS: 77063; 77067

== ENCOUNTER 2024-06-07 08:23 | Outpatient (CLI) | payer MEDICARE, SELFPAY ==
[2024-06-07 08:41] LABS: Basophils Absolute Auto 0.03 K/mm3 (0.00-0.10); Basophils Percent Auto 0.6 % (0.0-1.0); Eosinophils Absolute Auto 0.13 K/mm3 (0.02-0.50); Eosinophils Percent Auto 2.7 % (1.0-6.0); Hematocrit 41.9 % (35.0-42.0); Hemoglobin 13.2 g/dL (11.7-13.8); Immature Granulocyte Absolute 0.01 K/mm3 (0.00-0.00); Immature Granulocyte Percent A 0.2 % (0.0-0.0); Lymphocytes Absolute Auto 2.08 K/mm3 (1.10-4.50); Lymphocytes Percent Auto 42.8 % (18.0-42.0); Mean Corpuscular HGB Conc 31.5 g/dL (32-36); Mean Corpuscular Hemoglobin 27.7 pg (27.0-31.0); Mean Corpuscular Volume 87.8 fL (78.0-102.0); Monocytes Absolute Auto 0.46 K/mm3 (0.10-0.90); Monocytes Percent Auto 9.5 % (2.0-11.0); Neutrophils Absolute Auto 2.15 K/mm3 (1.70-7.20); Neutrophils Percent Auto 44.2 % (50.0-70.0); Platelet Count Result 267 K/mm3 (150-420); Red Blood Count 4.77 M/mm3 (4.20-5.40); Red Cell Distribution Width 12.8 % (11.6-14.4); White Blood Count 4.9 K/mm3 (4.8-10.8)
[2024-06-07 09:02] LABS: Hemoglobin A1C 6.3 % (<5.7)
[2024-06-07 09:16] LABS: Alanine Aminotransferase 27 U/L (14-59); Albumin Level 4.1 g/dL (3.4-5.0); Alkaline Phosphatase 109 U/L (46-116); Anion Gap 6 mmol/L (4-12); Aspartate Amino Transferase 17 U/L (15-37); Bilirubin,Total 0.7 mg/dL (0.00-1.00); Blood Urea Nitrogen 27 mg/dL (7-18); Calcium 9.2 mg/dL (8.5-10.1); Carbon Dioxide 31 mmol/L (21-32); Chloride 107 mmol/L (98-108); Cholesterol 221 mg/dL (0-200); Estimated Glomerular Filt Rate > 60; Glucose 106 mg/dL (70-99); HDL Direct 52 mg/dL (40-60); LDL Cholesterol Calculated 141 mg/dL (<130); Osmolality Calculated 303 mOsm/kg (285-295); Potassium 3.9 mmol/L (3.5-5.1); Sodium 144 mmol/L (136-145); Thyroid Stimulating Hormone 3.43 uIU/mL (0.36-3.74); Triglycerides 141 mg/dL (0-150)
== END 2024-06-07 08:24 | disposition home or self-care (01) ==
LOC: CHSLAB 08:24
PROVIDERS: PCP Nurse Practitioner Family; Visit Provider Nurse Practitioner Family
DX: I10 Essential (primary) hypertension (principal); E78.5 Hyperlipidemia, unspecified; R73.03 Prediabetes
CPT/HCPCS: 36415; 80053; 80061; 83036; 84443; 85025

== ENCOUNTER 2024-09-20 08:15 | Outpatient (CLI) | payer MEDICARE, BC, SELFPAY ==
--- OUTSIDE RECORDS SUMMARY | 2024-09-20 08:19 | XMS_ITS | Patient Health Record ---
Author Organization [facility] Address [address] [place], [place] [id number] Care Team Providers Care Ship/Rec/Doc Control Name Role Phone TRES DEMAR Unavailable [phone] Tiera Manuel Unavailable Unavailable Allergies Allergen (clinical drug ingredient) Drug/Non Drug Allergy documented on EMR Reaction Allergy Type Onset Date Status Penicillin Unknown Drug Allergy Active Reason For Referral No Information Medications Medication SIG (Take, Route, Fr equency, Duration) Notes Start Date End Date Status Lisinopril 20 MG 1 tablet Orally Once a day Active Daily Vitamin Active Social History Tobacco Use: Social History Observation Description Date Details (start date - stop date) Never Smoker NA - NA Tobacco Control (Standard) Question Answer Notes Tobacco use: Nonsmoker Vital Signs Height-cm 160.02 cm 09/05/2024 Weight-kg 61.24 kg 09/05/2024 Height 63 in 09/05/2024 Weight 135 lbs 09/05/2024 BMI 23.91 kg/m2 09/05/2024 Encounters Encounter Location Date Provider Diagnosis [address] [id number] 07/04/2024 DEMAR JOSHUA Type 2 diabetes mellitus with other circulatory complications E11.59 ; Hallux rigidus, right foot M20.21 ; Hallux rigidus, left foot M20.22 ; Ingrowing nail L60.0 ; Pain in right foot M79.671 and Pain in left foot M79.[address] [id number] 09/05/2024 DEMAR JOSHUA Type 2 diabetes mellitus with other circulatory complications E11.59 ; Hallux rigidus, right foot M20.21 ; Hallux rigidus, left foot M20.22 ; Ingrowing nail L60.0 ; Pain in right foot M79.671 and Pain in left foot M79.672 Assessments Encounter Date Diagnosis (ICD Code) Assessment Notes Treatment Notes Treatment Clinical Notes Section Notes 07/04/2024 Hallux rigidus, right foot (ICD-10 - M20.21) halllux limitus bilateral causing wide forefoot and excess motion in foot. She wears asics when working out but no orthotics. She wears flat sandals in the summer. Advised on use of orthotics in Asics and supportive summer shoes like Vionics or Birkenstocks. 07/04/2024 Type 2 diabetes mellitus with other circulatory complications (ICD-10 - E11.59) The patient was educated on diabetes and the lower extremity. The patient was instructed to check his feet daily to report any problems or signs of infection immediately. 09/05/2024 Type 2 diabetes mellitus with other circulatory complications (ICD-10 - E11.59) The patient was educated on diabetes and the lower extremity. The patient was instructed to check his feet daily to report any problems or signs of infection immediately. 09/05/2024 Hallux rigidus, right foot (ICD-10 - M20.21) halllux limitus bilateral causing wide forefoot and excess motion in foot. She wears asics when working out but no orthotics. She wears flat sandals in the summer. Advised on use of orthotics in Asics and supportive summer shoes like Vionics or Birkenstocks. 09/05/2024 Hallux rigidus, left foot (ICD-10 - M20.22) She bought bgvm-hrr-msfrehq orthotics today. 07/04/2024 Hallux rigidus, left foot (ICD-10 - M20.22) 09/05/2024 Ingrowing nail (ICD-10 - L60.0) Ingrown [...] 1st nails with #15 blade scalpel. 07/04/2024 Ingrowing nail (ICD-10 - L60.0) Ingrown [...] starting to watch for possible rash/allergic reaction 09/05/2024 Pain in right foot (ICD-10 - M79.671) Patient was instructed to try an OTC topical pain reliever/anti-in flammatory as needed for pain such as Voltaren Gel, Aspercreme with Lidocaine, or Biofreeze etc over the affected areas. Spot test on hand or somewhere visible prior to starting to watch for possible rash/allergic reaction 09/05/2024 Pain in left foot (ICD-10 - M79.672) 07/04/2024 Pain in left foot (ICD-10 - M79.672) Plan Of Treatment No Information Insurance Providers Payer Name Payer Address Payer Phone Subscriber Number Group Number Insured Name Patient Relationship to Insured Coverage Start Date Coverage End Date Medicare Part B [place] [address] [place] [phone] [id number] Yudelka Velasco Self - patient is the insured 3 [facility] ([facility]) ATTN CLAIMS [address] [place] [address] [id number] Yudelka Velasco Self - patient is the insured Medical (General) History Medical History History ICD Code Arthritis Back Trouble Diabetic high blood pressure Surgical History Surgery Date(Month/Year) torn meniscus repair
--- OUTSIDE RECORDS SUMMARY | 2024-09-20 08:19 | XMS_ITS ---
Author Organization [facility] Address [address] [place], [place] [id number] Care Team Providers Care Picture Copyist Name Role Phone TRES DEMAR Unavailable [phone] Tiera Manuel Unavailable Unavailable Allergies Allergen (clinical [...] Answer Notes Tobacco use: Nonsmoker Vital Signs Height 63 in 09/05/2024 Weight 135 lbs 09/05/2024 BMI 23.91 kg/m2 09/05/2024 Height-cm 160.02 cm 09/05/2024 Weight-kg 61.24 kg 09/05/2024 Encounters Encounter Location Date Provider Diagnosis [address] [id number] 09/05/2024 DEMAR JOSHUA Type 2 diabetes mellitus [...] left foot (ICD-10 - M20.22) She bought tqic-ilf-artphkd orthotics today. 09/05/2024 Ingrowing nail (ICD-10 - [...] 1st nails with #15 blade scalpel. 09/05/2024 Pain in right foot (ICD-10 - [...] Hallux rigidus, left foot She bought ove h-qwz-srlowzq orthotics today. Ingrowing nail Ingrown toenails, or [...] Months, Reason: eval otc orthotics, general care Progress Notes * Yudelka MCCLAIN SDOB:1955 (69 yo F)Acc No.[id number]:09/05/2024 Patient: Yudelka GARG Provider: Naila JOSHUA :1955 A ge:68 Y S ex:Female Date:09/05/2024 Address:[facility] [address] [facility] Subjective: * Chief Complaints: * 1 . *General care. * HPI: H PI: General care P atient presents to the office for at risk foot care. Patient states that their nails are thickened, elongated and painful. Patient states that it is aggravated by shoe gear. Onset is gradual. Patient denies being diabetic., Patient denies taking blood thinners., Date last seen by Dr. Manuel was 04/2024., Initials mca. * ROS: G eneral / Constitutional: Patient [...] of strength, Numbness. ? * Medical History: A rthritis, Back Trouble, Diabetic, High blood pressure. * Surgical History: t orn meniscus repair . * Family History: M other: Diabetic, High Blood Pressure, Back Problem, Cancer. * Social History: T obacco Use: T obacco Control (Standard) T obacco use: N onsmoker. * Medications: T aking Daily Vitamin , Taking Lisinopril 20 MG Tablet 1 tablet Orally Once a day , Medication List reviewed and reconciled with the patient * Allergies: P enicillin: Allergy. Objective: * Vitals: W t:135lbs, Wt-k.24 kg, [...] allux rigidus, left foot Notes: She bought nqqj-lcm-ezpatda orthotics today. 4. I ngrowing nail Notes: [...] 1st nails with #15 blade scalpel. 5. P ain in right foot Notes: Patient was instructed to try an OTC topical pain reliever/anti-inflammatory as needed for pain such as Voltaren Gel, Aspercreme with Lidocaine, or Biofreeze etc over the affected areas. Spot test on hand or somewhere visible prior to starting to watch for possible rash/allergic reaction? * Immunizations: Immunization record has been reviewed and updated. * Preventive Medicine: Screenings: F all risk screening F all Risk Assessment: N o falls in the past year. * Follow Up: 2 Months (Reason: eval otc orthotics, general care) * Billing Information: * Visit Code: * Procedure Codes: * Electronic signature of NICKOLAS JOSHUA DPM on 09/20/2024 at 08:18 AM CDT Sign off status: Pending * Provider: Naila JOSHUA Date: 0 09/05/2024 Generated for Marcela restrepo/Perez on: 0 09/20/2024 08:18 AM CDT History and Physical Notes * HPI (History [...]
--- OUTSIDE RECORDS SUMMARY | 2024-09-20 08:19 | XMS_ITS ---
Author Organization [facility] Address [address] [place], [place] [address] Care Team Providers Care Schedule Supervisor Name Role Phone TRES DEMAR Unavailable [phone] Tiera Manuel Unavailable Unavailable Allergies Allergen (clinical [...] 07/04/2024 Encounters Encounter Location Date Provider Diagnosis [address] [id number] 07/04/2024 DEMAR JOSHUA Type 2 diabetes mellitus [...] * Yudelka MCCLAIN SDOB:1955 (69 yo F)Acc No.[id number]:07/04/2024 Progress Notes Patient: Yudelka GARG Provider: Naila JOSHUA :1955 A ge:68 Y S ex:Female Date:07/04/2024 Address:[address] [place], [place] [id number] Subjective: * Chief Complaints: * 1 . *Possible ingrown nail. * HPI: H PI: New Complaint P atient presents for a new patient consultation., Patient [...] they tend to curl upwards. , MA: daniel. * ROS: G eneral / Constitutional: Patient [...] History: t orn meniscus repair . * Hospitalization/Major Diagno stic Procedure: D enies Past Hospitalization. * Family History: M other: Diabetic, High [...] care) * Billing Information: * Visit Code: 77957 Office Visit, New Pt., Level 3. * Procedure Codes: * Electronic signature of NICKOLAS JOSHUA DPM on 09/20/2024 at 08:18 AM CDT Sign off status: Pending * Provider: Naila JOSHUA Date: 0 07/04/2024 Generated for Marcela restrepo/Vi/Ciro on: 0 09/20/2024 08:18 AM CDT History [...] they tend to curl upwards. , MA: mca Examination Category Sub-Category Detail Notes Category [...]
[2024-09-20 09:12] LABS: Hemoglobin A1C 5.7 % (<5.7)
[2024-09-20 09:16] LABS: Alanine Aminotransferase 18 U/L (6-35); Albumin Level 4.4 g/dL (3.5-5.1); Alkaline Phosphatase 89 U/L (38-126); Anion Gap 5 mmol/L (4-12); Aspartate Amino Transferase 26 U/L (14-36); Bilirubin,Total 0.9 mg/dL (0.2-1.3); Blood Urea Nitrogen 25 mg/dL (7-17); Calcium 9.1 mg/dL (8.4-10.2); Carbon Dioxide 29 mmol/L (22-30); Chloride 107 mmol/L (98-107); Estimated Glomerular Filt Rate > 60; Glucose 99 mg/dL (65-110); Osmolality Calculated 296 mOsm/kg (285-295); Potassium 3.8 mmol/L (3.4-5.0); Sodium 141 mmol/L (137-145); Total Protein 6.7 g/dL (6.3-8.2)
== END 2024-09-20 08:16 | disposition home or self-care (01) ==
LOC: CHSLAB 08:17
PROVIDERS: PCP Nurse Practitioner Family; Visit Provider Nurse Practitioner Family
DX: R73.03 Prediabetes (principal); E78.5 Hyperlipidemia, unspecified
CPT/HCPCS: 36415; 80053; 83036

== ENCOUNTER 2025-01-01 09:15 | Outpatient (CLI) | payer MEDICARE, BC, SELFPAY ==
--- OUTSIDE RECORDS SUMMARY | 2024-07-04 05:00 | XMS_ITS ---
Author Organization [facility] Address [address] [place], [place] [id number] Care Team Providers Care Rugby Union Footballer Name Role Phone TRES DEMAR Unavailable [phone] Tiera Manuel Unavailable Unavailable Allergies Allergen (clinical drug ingredient) Drug/Non Drug Allergy documented on EMR Reaction Allergy Type Onset Date Status Penicillin Unknown Drug Allergy Active REASON FOR VISIT *Possible ingrown nail Medications Medication SIG (Take, Route, Fr equency, Duration) Notes Start Date End Date Status Lisinopril 20 MG Tablet 1 tablet Orally Once a day Active Daily Vitamin Active Social History Tobacco Use: Social History Observation Description Date Details (start date - stop date) Never Smoker NA - NA Social History Tobacco Use: Social Info Question Answer Notes Tobacco Control (Standard) Tobacco use: Nonsmoker Vital Signs Height 63 in 07/04/2024 Weight 135 lbs 07/04/2024 BMI 23.91 kg/m2 07/04/2024 Height-cm 160.02 cm 07/04/2024 Weight-kg 61.24 kg 07/04/2024 Encounters Encounter Location Date Provider Diagnosis [address] [id number] 07/04/2024 DEMAR JOSHUA Type 2 diabetes mellitus with other circulatory complications E11.59 ; Hallux rigidus, right foot M20.21 ; Hallux rigidus, left foot M20.22 ; Ingrowing nail L60.0 ; Pain in right foot M79.671 and Pain in left foot M79.672 Assessments Encounter Date Diagnosis (ICD Code) Assessment Notes Treatment Notes Treatment Clinical Notes Section Notes 07/04/2024 Type 2 diabetes mellitus with other circulatory complications (ICD-10 - E11.59) The patient was educated on diabetes and the lower extremity. The patient was instructed to check his feet daily to report any problems or signs of infection immediately. 07/04/2024 Hallux rigidus, right foot (ICD-10 - M20.21) halllux limitus bilateral causing wide forefoot and excess motion in foot. She wears asics when working out but no orthotics. She wears flat sandals in the summer. Advised on use of orthotics in Asics and supportive summer shoes like Vionics or Birkenstocks. 07/04/2024 Hallux rigidus, left foot (ICD-10 - M20.22) 07/04/2024 Ingrowing nail (ICD-10 - L60.0) Ingrown toenails, or onychocryptosis, occur when the lateral portion of the nail plate digs and grows into the nail fold causing an inflammatory reaction. Patients typically present with pain, erythema and edema of the affected nail fold with infection being a common occurrence. The etiology of ingrown toenails are improperly trimmed toenails, tight-fitting shoes, trauma and heredity. The great toe is most commonly affected with lateral side occurrence more often than medial. While the majority of patients respond to conservative treatment, nail avulsion and surgical treatment may be necessary for moderate to severe cases. Debrided nails today. Debrided ingrown nail edges with slant back and calluses on medial and lateral 1st nails with #15 blade scalpel. 07/04/2024 Pain in right foot (ICD-10 - M79.671) Patient was instructed to try an OTC topical pain reliever/anti-in flammatory as needed for pain such as Voltaren Gel, Aspercreme with Lidocaine, or Biofreeze etc over the affected areas. Spot test on hand or somewhere visible prior to starting to watch for possible rash/allergic reaction 07/04/2024 Pain in left foot (ICD-10 - M79.672) Plan Of Treatment Treatment Notes Assessment Notes Type 2 diabetes mellitus wit h other circulatory complications The patient was educated on diabetes and the lower extremity. The patient was instructed to check his feet daily to report any problems or signs of infection immediately. Hallux rigidus, right foot halllux limit us bilateral causing wide forefoot and excess motion in foot. She wears asics when working out but no orthotics. She wears flat sandals in the summer. Advised on use of orthotics in Asics and supportive summer shoes like Vionics or Birkenstocks. Ingrowing nail Ingrown toenails, or onychocryptosis, occur when the lateral portion of the nail plate digs and grows into the nail fold causing an inflammatory reaction. Patients typically present with pain, erythema and edema of the affected nail fold with infection being a common occurrence. The etiology of ingrown toenails are improperly trimmed toenails, tight-fitting shoes, trauma and heredity. The great toe is most commonly affected with lateral side occurrence more often than medial. While the majority of patients respond to conservative treatment, nail avulsion and surgical treatment may be necessary for moderate to severe cases. Debrided nails today. Debrided ingrown nail edges with slant back and calluses on medial and lateral 1st nails with #15 blade scalpel. Pain in right foot Patient was instruct ed to try an OTC topical pain reliever/anti-inflammatory as needed for pain such as Voltaren Gel, Aspercreme with Lidocaine, or Biofreeze etc over the affected areas. Spot test on hand or somewhere visible prior to starting to watch for possible rash/allergic reaction Next Appt Details Follow Up: 2 Months, Reason: eval otc orthotics, general care Provider Name:DEMAR LARA, 01/23/2025 11:10:00 AM, [address] [place] [address], [phone], History and Physical Notes * HPI (History of Present Illness) Category Sub-Category Detail Notes Category Not es HPI New Complaint Patient presents for a new patient consultation., Patient complains of an issue to bilateral great toenails being ingrown. Patient states that she typically tries to cut the nails at home or gets pedicures. She states that she is looking for options on how to treat them. Patients states that the middle toes, specifically the 3rd digit nails are thick and when they grow out they tend to curl upwards. , [place]: [facility] Examination Category Sub-Category Detail Notes Category Not es Constitutional Constitutional The patient is a wake, alert, well developed, well groomed and well nourished. Dermatologic Nail pathology: bilateral, digit 1, digit 2, digit 3, incurvation, with onychocryptosis, with pain on palpation, with thick ingrown toenails. Musculoskeletal Muscle Strength Muscle strength is 5/5 in regards to dorsiflexion, plantarflexion, inversion, and eversion in bilateral lower extremities. 1st MPJ There is a small med ial prominence noted., The range of motion is limited on weight bearing push off bilateral. Neurologic Gross sensation Gross sensation is intact to light touch. Vascular Dorsalis pedis pulse: bilateral, 2/4 Posterior tibial pulse: bilaterally, 2/4 Progress Notes * Yudelka MCCLAIN SDOB:1955 (69 yo F)Acc No.[id number]:07/04/2024 Progress Notes Patient: Yudelka Dumont Provider: Naila JOSHUA :1955 A ge:68 Y S ex:Female Date:07/04/2024 Address:[address] [place], [place] [id number] Subjective: * Chief Complaints: * * Possible ingrown nail * HPI: H PI: New Complaint P nanette presents for a new patient consultation., Patient complains of an issue to bilateral great toenails being ingrown. Patient states that she typically tries to cut the nails at home or gets pedicures. She states that she is looking for options on how to treat them. Patients states that the middle toes, specifically the 3rd digit nails are thick and when they grow out they tend to curl upwards. , [place]: [facility]. * ROS: G eneral / Constitutional: Patient denies c hills, fever, night sweats, weakness. M usculoskeletal: Patient denies p ainful joints, broken foot bone. P atient complains of 1 st mtpj arthritis, split 5th nail bilat. P eripheral Vascular: Patient denies b lanching of skin, blood clots in legs, cold extremities, ulceration of feet. P atient complains of p ainful extremities. ? S kin: Patient complains of d iscoloration, nail changes, ingrown nails. N eurologic: Patient denies l oss of strength, Numbness. ? * Medical History: Arthritis Back Trouble Diabetic High blood pressure Medical History Verified * Surgical History: torn meniscus repair Surgical History verified. * Hospitalization/Major Diagno stic Procedure: Denies Past Hospitalization. Hospitalization Verified. * Family History: M other: Diabetic, High Blood Pressure, Back Problem, Cancer. F amily History Verified..? * Social History: T obacco Use: T obacco Control (Standard) T obacco use: N onsmoker. Social History Verified. * Medications: T akingDaily Vitamin Lisinopril 20 MG Tablet 1 tablet Orally Once a day Medication List reviewed and reconciled with the patientTaking Daily Vitamin Taking Lisinopril 20 MG Tablet 1 tablet Orally Once a day Medication List reviewed and reconciled with the patient * Allergies: P enicillin: AllergyyesAllergies Verified. Objective: * Vitals: W t:135lbs, Wt-k.24 kg, Ht: 63 in, Ht-cm: 160.02 cm, BMI:23.91Index, Body Surface Area: 1.65. * Examination: C onstitutional: Constitutional T he patient is awake, alert, well developed, well groomed and well nourished.. M usculoskeletal: Muscle Strength M uscle strength is 5/5 in regards to dorsiflexion, plantarflexion, inversion, and eversion in bilateral lower extremities.. 1st MPJ T here is a small medial prominence noted., The range of motion is l imited on weight bearing push off bilateral.. N eurologic: Gross sensation G ross sensation is intact to light touch..? V ascular: Dorsalis pedis pulse: b ilateral, 2/4. Posterior tibial pulse: b ilaterally, 2/4. D ermatologic: Nail pathology: b ilateral, digit 1, digit 2, digit 3, incurvation, with onychocryptosis, with pain on palpation, with thick ingrown toenails.. ? Assessment: * Assessment: 1. T ype 2 diabetes mellitus with other circulatory complications - E11.59 (Primary) 2 . H allux rigidus, right foot - M20.21 3 . H allux rigidus, left foot - M20.22 4 . I ngrowing nail - L60.0 5 . P ain in right foot - M79.671 6 . P ain in left foot - M79.672 Plan: * Treatment: 2. H allux rigidus, right foot Notes: halllux limitus bilateral causing wide forefoot and excess motion in foot. She wears asics when working out but no orthotics. She wears flat sandals in the summer. Advised on use of orthotics in Asics and supportive summer shoes like Vionics or Birkenstocks. 3. I ngrowing nail Notes: Ingrown toenails, or onychocryptosis, occur when the lateral portion of the nail plate digs and grows into the nail fold causing an inflammatory reaction. Patients typically present with pain, erythema and edema of the affected nail fold with infection being a common occurrence. The etiology of ingrown toenails are improperly trimmed toenails, tight-fitting shoes, trauma and heredity. The great toe is most commonly affected with lateral side occurrence more often than medial. While the majority of patients respond to conservative treatment, nail avulsion and surgical treatment may be necessary for moderate to severe cases. Debrided nails today. Debrided ingrown nail edges with slant back and calluses on medial and lateral 1st nails with #15 blade scalpel. 4. P ain in right foot Notes: Patient was instructed to try an OTC topical pain reliever/anti-inflammatory as needed for pain such as Voltaren Gel, Aspercreme with Lidocaine, or Biofreeze etc over the affected areas. Spot test on hand or somewhere visible prior to starting to watch for possible rash/allergic reaction? * Immunizations: Immunization record has been reviewed and updated. * Follow Up: 2 Months (Reason: eval otc orthotics, general care) Billing Information: * Visit Code: 30974 Office Visit, New Pt., Level 3. * Electronic signature of NICKOLAS JOSHUA DPM on 01/01/2025 at 09:59 AM HORSE BREEDER Sign off status: Pending * Provider: Naila JOSHUA Date: 0 07/04/2024 Generated for Marcela restrepo/Vi/Jacquelineitting on: 1 03/03/2024 09:59 AM HORSE BREEDER
--- OUTSIDE RECORDS SUMMARY | 2024-09-05 03:50 | XMS_ITS ---
Author Organization [facility] Address [address] [place], [place] [id number] Care Team Providers Care Credit Rating Inspector Name Role Phone TRES DEMAR Unavailable [phone] Tiera Manuel Unavailable Unavailable Allergies Allergen (clinical drug ingredient) Drug/Non Drug Allergy documented on EMR Reaction Allergy Type Onset Date Status Penicillin Unknown Drug Allergy Active REASON FOR VISIT *General care Medications Medication SIG (Take, Route, Fr equency, [...] use: Nonsmoker Vital Signs Height 63 in 09/05/2024 Weight 135 lbs 09/05/2024 BMI 23.91 kg/m2 09/05/2024 Height-cm 160.02 cm 09/05/2024 Weight-kg 61.24 kg 09/05/2024 Encounters Encounter Location Date Provider Diagnosis [address] [id number] 09/05/2024 DEMAR JOSHUA Type 2 diabetes mellitus with other circulatory complications E11.59 ; Fungal infection of nail B35.1 ; Hallux rigidus, right foot M20.21 ; Hallux rigidus, left foot M20.22 and Ingrowing nail L60.0 Assessments Encounter Date Diagnosis (ICD Code) Assessment Notes Treatment Notes Treatment Clinical Notes Section Notes 09/05/2024 Type 2 diabetes mellitus with other circulatory complications (ICD-10 - E11.59) The patient was educated on diabetes and the lower extremity. The patient was instructed to check his feet daily to report any problems or signs of infection immediately. 09/05/2024 Fungal infection of nail (ICD-10 - B35.1) 09/05/2024 Hallux rigidus, right foot (ICD-10 - M20.21) halllux limitus bilateral causing wide forefoot and excess motion in foot. She wears asics when working out but no orthotics. She wears flat sandals in the summer. Advised on use of orthotics in Asics and supportive summer shoes like Vionics or Birkenstocks. 09/05/2024 Hallux rigidus, left foot (ICD-10 - M20.22) She bought [id number] orthotics today. 09/05/2024 Ingrowing nail (ICD-10 - L60.0) Ingrown toenails, [...] lateral 1st nails with #15 blade scalpel. 09/05/2024 Other Patient was instructed to try an OTC topical pain reliever/anti-in flammatory as needed for pain such as Voltaren Gel, Aspercreme with Lidocaine, or Biofreeze etc over the affected areas. Spot test on hand or somewhere visible prior to starting to watch for possible rash/allergic reaction Plan Of Treatment Treatment Notes Assessment Notes [...] supportive summer shoes like Vionics or Birkenstocks. Hallux rigidus, left foot She bought ove [id number] orthotics today. Ingrowing nail Ingrown toenails, or onychocryptosis, occur [...] lateral 1st nails with #15 blade scalpel. Other Patient was instruct ed to try an [...] care Provider Name:DEMAR LARA, 01/23/2025 11:10:00 AM, [address] [place] [address], [phone], History and Physical Notes * HPI (History of Present Illness) Category Sub-Category Detail Notes Category Not es HPI General care Patient presents to the office for at risk foot care. Patient states that their nails are thickened, elongated and painful. Patient states that it is aggravated by shoe gear. Onset is gradual. Patient denies being diabetic., Patient denies taking blood thinners., Date last seen by Dr. Manuel was 04/2024., Initials [facility] Examination Category Sub-Category Detail Notes Category Not es Constitutional Constitutional The patient is a wake, alert, well developed, well groomed and well nourished. Dermatologic Nail pathology: bilateral, digit 1, digit 2, digit 3, incurvation, with onychocryptosis, with pain on palpation, with thick ingrown toenails. Hyperkeratotic Skin Lesion There is evid ence of hyperkeratotic skin lesions present on the, bilateral distal aspect of the 1st digit Musculoskeletal Muscle Strength Muscle strength is 5/5 [...] * Yudelka MCCLAIN SDOB:1955 (69 yo F)Acc No.[id number]:09/05/2024 Patient: Yudelka Dumont Provider: Naila JOSHUA :1955 A ge:68 Y S ex:Female Date:09/05/2024 Address:[address] [place], [place] [phone] Subjective: * Chief Complaints: * * General care * HPI: H PI: General care P nanette presents to the office for at risk foot care. Patient states that their nails are thickened, elongated and painful. Patient states that it is aggravated by shoe gear. Onset is gradual. Patient denies being diabetic., Patient denies taking blood thinners., Date last seen by Dr. Manuel was 04/2024., Initials [facility]. * ROS: G eneral / Constitutional: Patient [...] torn meniscus repair Surgical History verified. * Family History: M other: Diabetic, High [...] pain on palpation, with thick ingrown toenails.. Hyperkeratotic Skin Lesion T here is evidence of hyperkeratotic skin lesions present on the, bilateral d istal aspect of the 1st digit. ? Assessment: * Assessment: 1. T ype 2 diabetes mellitus with other circulatory complications - E11.59 (Primary) 2 . F ungal infection of nail - B35.1 3 . H allux rigidus, right foot - M20.21 4 . H allux rigidus, left foot - M20.22 5 . I ngrowing nail - L60.0 Plan: * Treatment: 2. H allux rigidus, right foot Notes: halllux limitus bilateral causing wide forefoot and excess motion in foot. She wears asics when working out but no orthotics. She wears flat sandals in the summer. Advised on use of orthotics in Asics and supportive summer shoes like Vionics or Birkenstocks. 3. H allux rigidus, left foot Notes: She bought [id number] orthotics today. 4. I ngrowing nail Notes: Ingrown toenails, or [...] lateral 1st nails with #15 blade scalpel. 5. O thers Notes: Patient was instructed to try an OTC topical pain reliever/anti-inflammatory as needed for pain such as Voltaren Gel, Aspercreme with Lidocaine, or Biofreeze etc over the affected areas. Spot test on hand or somewhere visible prior to starting to watch for possible rash/allergic reaction? * Immunizations: Immunization record has been reviewed and updated. * Procedure Codes: 1 1721 DEBRIDE NAIL, 6 OR MORE, Modifiers: Q8 * Preventive Medicine: Screenings: F all risk screening F all Risk Assessment: N o falls in the past year. * Follow Up: 2 Months (Reason: eval otc orthotics, general care) Billing Information: * Procedure Codes: 40597 DEBRIDE NAIL, 6 OR MORE. Modifiers: Q8 * Electronic signature of NICKOLAS JOSHUA DPM on 01/01/2025 at 09:59 AM ZIPPER SETTER Sign off status: Pending * Provider: Naila JOSHUA Date: 0 09/05/2024 Generated for Marcela restrepo/Vi/Ciro on: 1 03/03/2024 09:59 AM ZIPPER SETTER
--- OUTSIDE RECORDS SUMMARY | 2024-11-14 04:50 | XMS_ITS ---
Author Organization [facility] Address [address] [place], [place] [address] Care Team Providers Care College Sports Assistant Name Role Phone TRES DEMAR Unavailable [phone] Tiera Manuel Unavailable Unavailable REASON FOR VISIT *General care Encounters Encounter Location Date Provider Diagnosis [address] [id number] 11/14/2024 DEMAR JOSHUA Fungal infection of nail B35.1 ; Pain in right toe(s) M79.674 ; Pain in left toe(s) M79.675 and Atherosclerosis of [place] arteries of extremities with intermittent claudication, bilateral legs I70.213 Assessments Encounter Date Diagnosis (ICD Code) Assessment Notes Treatment Notes Treatment Clinical Notes Section Notes 11/14/2024 Fungal infection of nail (ICD-10 - B35.1) 11/14/2024 Pain in right toe(s) (ICD-10 - M79.674) 11/14/2024 Pain in left toe(s) (ICD-10 - M79.675) 11/14/2024 Atherosclerosis of [place] arteries of extremities with intermittent claudication, bilateral legs (ICD-10 - I70.213) Plan Of Treatment Next Appt Details Provider Name:DEMAR LARA, 01/23/2025 11:10:00 AM, [address] [place] [address], [phone], Progress Notes * Yudelka CMCLAIN SDOB:1955 (69 yo F)Acc No.[id number]:11/14/2024 Patient: Yudelka Dumont Provider: Naila JOSHUA :1955 A ge:69 Y S ex:Female Date:11/14/2024 Address:[address] [place], [place] [id number] Subjective: * Chief Complaints: * * General care Assessment: * Assessment: 1. F ungal infection of nail - B35.1 (Primary) 2 . P ain in right toe(s) - M79.674 3 . P ain in left toe(s) - M79.675 4 . A therosclerosis of [place] arteries of extremities with intermittent claudication, bilateral legs - I70.213 ? Billing Information: * Visit Code: 60532 Office Visit, Est Pt., Level 3. * Electronic signature of NICKLOAS JOSHUA DPM on 01/01/2025 at 09:59 AM TABLE FILLER Sign off status: Pending * Provider: Naila JOSHUA Date: 0 11/14/2024 Generated for Marcela restrepo/Vi/eTransmitting on: 1 03/03/2024 09:59 AM TABLE FILLER
--- NOTE | ~2025-01-01 | MM_ITS ---
EXAMINATION: MM screening angelina BI w davina HISTORY: Screening TECHNIQUE: Craniocaudal and mediolateral oblique 3-D tomosynthesis images were obtained and synthetic 2-D images were generated. CAD analysis was submitted and interpreted. COMPARISON: Comparison to multiple prior studies sequentially, with oldest reviewed study dated 05/23/2018. BREAST PARENCHYMAL COMPOSITION: Not dense: There are scattered areas of fibroglandular density. FINDINGS: There is no evidence of suspicious mass, calcification, or architectural distortion to suggest malignancy in either breast. There has been no suspicious interval change. IMPRESSION: 1. No mammographic evidence of malignancy. 2. Recommend routine screening mammography in one year. BI-RADS Category 1: Negative Reviewed, dictated and finalized at location B. AL NURSE
--- OUTSIDE RECORDS SUMMARY | 2025-01-01 10:00 | XMS_ITS | Patient Health Record ---
Author Organization [facility] Address [address] [place], [place] [address] Care Team Providers Care Doctor Of Dental Surgery Name Role Phone TRES DEMAR Unavailable [phone] Tiera Manuel Unavailable Unavailable Allergies Allergen (clinical [...] Control (Standard) Tobacco use: Nonsmoker Vital Signs Height-cm 160.02 cm 09/05/2024 Weight-kg 61.24 kg 09/05/2024 Height 63 in 09/05/2024 Weight 135 lbs 09/05/2024 BMI 23.91 kg/m2 09/05/2024 Encounters Encounter Location Date Provider Diagnosis [address] [id number] 07/04/2024 DEMAR JOSHUA Type 2 diabetes mellitus with other circulatory complications E11.59 ; Hallux rigidus, right foot M20.21 ; Hallux rigidus, left foot M20.22 ; Ingrowing nail L60.0 ; Pain in right foot M79.671 and Pain in left foot M79.[address] [id number] 09/05/2024 DEMAR JOSHUA Type 2 diabetes mellitus with other circulatory complications E11.59 ; Fungal infection of nail B35.1 ; Hallux rigidus, right foot M20.21 ; Hallux rigidus, left foot M20.22 and Ingrowing nail L60.[address] [id number] 11/14/2024 DEMAR JOSHUA Fungal infection of nail B35.1 ; Pain in right toe(s) M79.674 ; Pain in left toe(s) M79.675 and Atherosclerosis of [place] arteries of extremities with intermittent claudication, bilateral [...] in right toe(s) (ICD-10 - M79.674) 11/14/2024 Fungal infection of nail (ICD-10 - B35.1) 11/14/2024 Pain in left toe(s) (ICD-10 - M79.675) 09/05/2024 Hallux rigidus, right foot (ICD-10 - [...] 1st nails with #15 blade scalpel. 09/05/2024 Hallux rigidus, left foot (ICD-10 - M20.22) She bought hnwm-nyi-xentqjo orthotics today. 11/14/2024 Atherosclerosis of [place] arteries of extremities with intermittent claudication, bilateral legs (ICD-10 - I70.213) 09/05/2024 Ingrowing nail (ICD-10 - L60.0) Ingrown [...] Pain in left foot (ICD-10 - M79.672) 09/05/2024 Other Patient was instructed to try an OTC topical pain reliever/anti-in flammatory as needed for pain such as Voltaren Gel, Aspercreme with Lidocaine, or Biofreeze etc over the affected areas. Spot test on hand or somewhere visible prior to starting to watch for possible rash/allergic reaction Plan Of Treatment Next Appt Details Provider Name:DEMAR LARA, 01/23/2025 11:10:00 AM, [address] [place] [address], [phone], Insurance Providers Payer Name Payer Address Payer Phone Subscriber Number Group Number Insured Name Patient Relationship to Insured Coverage Start Date Coverage End Date Medicare Part B [place] [address] [place] [address] [id number] Yudelka Velasco Self - patient is the insured 3 [facility] ([facility]) ATTN CLAIMS [address] [place] [address] [id number] Yudelka Velasco Self - patient is the insured Medical (General) History Medical History History ICD Code Arthritis Back Trouble Diabetic high blood pressure Surgical History Surgery Date(Month/Year) torn meniscus repair
== END 2025-01-01 09:16 | disposition home or self-care (01) ==
LOC: CHSIMG 09:16
PROVIDERS: PCP Nurse Practitioner Family; Visit Provider Obstetrics & Gynecology
DX: Z12.31 Encounter for screening mammogram for malignant neoplasm of breast (principal)
CPT/HCPCS: 77063; 77067